=== PATIENT | male | born 1990 | race Two or more races ===

== ENCOUNTER 2024-09-18 03:35 | Inpatient (IN) | payer MEDICAID ==
[~2024-09-18] VITALS: Ht 170.2 cm; Wt 68.0 kg
[2024-09-18 04:24] LABS: BASOPHILS # (AUTO) 0.1 K/UL (0.0-0.2); BASOPHILS % (AUTO) 0.4 % (0.0-2.0); EOSINOPHILS % (AUTO) 0.2 % (0.0-7.0); HEMATOCRIT 45.1 % (36.7-47.1); HEMOGLOBIN 15.4 g/dL (12.5-16.3); LYMPHOCYTES # (AUTO) 1.3 K/uL (0.8-4.8); LYMPHOCYTES % (AUTO) 9.1 % (20.5-51.5); MEAN CORPUSCULAR HEMOGLOBIN 30.7 uug (23.8-33.4); MEAN CORPUSCULAR HGB CONC 34 g/dL (32.5-36.3); MEAN CORPUSCULAR VOLUME 89.9 fL (73.0-96.2); MONOCYTES # (AUTO) 0.6 K/uL (0.1-1.30); MONOCYTES % (AUTO) 4.2 % (0.0-11.0); NEUTROPHILS # (AUTO) 11.8 K/uL (1.8-8.9); NEUTROPHILS % (AUTO) 86.1 % (38.5-71.5); PLATELET COUNT (AUTO) 339 K/uL (152-348); RED BLOOD CELL COUNT(AUTO) 5.02 MIL/uL (4.06-5.63); RED CELL DISTRIBUTION WIDTH 13.7 % (12.1-16.2); WHITE BLOOD COUNT (AUTO) 13.7 K/uL (3.6-10.2)
[2024-09-18 04:24] LABS: *BILIRUBIN,URIN NEGATIVE (NEGATIVE); *CLARITY,URINE CLEAR (CLEAR); *COLOR,URINE YELLOW (YELLOW); *KETONES,URINE NEGATIVE (NEGATIVE); *PROTEIN,URINE 1+ (NEGATIVE); *UROBILINOGEN,URINE 0.2 E.U./dl (NORMAL); LEUKOCYTE ESTERASE ,URINE NEGATIVE (NEGATIVE); NITRITE, URINE NEGATIVE (NEGATIVE); UGLUCOSE NEGATIVE (NEGATIVE)
[2024-09-18 04:27] LABS: DIFFERENTIAL COMMENT 1
[2024-09-18 04:28] LABS: *BLOOD, URINE TRACE (NEGATIVE)
[2024-09-18 04:35] LABS: ETHANOL < 3 MG/DL (0-10)
[2024-09-18 04:35] LABS: *AMPHETAMINE, URINE NEGATIVE (NEGATIVE); *BARBITURATE, URINE NEGATIVE (NEGATIVE); *BENZODIAZEPINE, URINE NEGATIVE (NEGATIVE); *CANNABINOID, URINE NEGATIVE (NEGATIVE); *COCCAINE, URINE NEGATIVE (NEGATIVE); *OPIATE, URINE NEGATIVE (NEGATIVE); *PHENCYCLIDINE SCREEN,URINE NEGATIVE (NEGATIVE); FENTANYL, URINE NEGATIVE (NEGATIVE)
[2024-09-18 04:36] LABS: CALCIUM 9.2 mg/dL (8.5-10.1); CREATININE 0.9 mg/dL (0.6-1.3); POTASSIUM 3.6 mmol/L (3.5-5.1)
[2024-09-18 04:42] LABS: ALBUMIN 4.4 g/dL (3.4-5.0); BILIRUBIN,TOTAL 0.5 mg/dL (0.2-1.0); TOTAL PROTEIN, SERUM 8.7 g/dL (6.4-8.2)
[2024-09-18] MEDS ORDERED: ONDANSETRON 4 MG/2 ML VIAL ONE ×2 (04:47→07:18)
[2024-09-18] MEDS ORDERED: KETOROLAC TROMETHAMINE 30 MG INJ ONE (04:48)
[2024-09-18] MEDS: KETOROLAC TROMETHAMINE 30 MG INJ IVP ONE (04:51)
[2024-09-18] MEDS: ONDANSETRON 4 MG/2 ML VIAL IV ONE ×2 (04:51→07:20)
[2024-09-18] MEDS: IV NS 1000 ML 1,000 ML IV ONE (04:51)
[2024-09-18] MEDS ORDERED: IOHEXOL 300MG/ML 100 ML INFUS..BTL ONE (05:03)
[2024-09-18] MEDS ORDERED: IV NORMAL SALINE 250 ML IV ONE (05:03)
[2024-09-18] MEDS ORDERED: SWABABLE VALVE TRANSFER SET EA MC ONE (05:03)
[2024-09-18 05:09] LABS: BACTERIA,URINE FEW /HPF (NONE SEEN); SQUAMOUS EPITHELIAL CELL,UR FEW /HPF (NONE SEEN); WBC,URINE NONE SEEN /HPF (0-3)
[2024-09-18] MEDS ORDERED: CEFTRIAXONE /D5W 50ML IVPB **ER PYXIS IV ONE (07:18)
[2024-09-18] MEDS ORDERED: MORPHINE SULFATE 2 MG/1 ML DISP.SYRIN ONE (07:18)
[2024-09-18] MEDS: CEFTRIAXONE 1 G in IV DEXTROSE 5% 50 ML IV ONE (07:20)
[2024-09-18] MEDS: MORPHINE SULFATE 2 MG/1 ML DISP.SYRIN IV ONE (07:36)
[2024-09-18] MEDS ORDERED: MORPHINE SULFATE 4 MG/1 ML DISP.SYRIN IV PRN (09:00)
[2024-09-18] MEDS ORDERED: ONDANSETRON 4 MG/2 ML VIAL IV PRN (09:00)
[2024-09-18 09:31] VITALS: BP 114/63; TEMP 98.4; O2SAT 100
[2024-09-18] MEDS ORDERED: MORPHINE SULFATE 2 MG/1 ML DISP.SYRIN IV PRN (09:45)
[2024-09-18] MEDS: METRONIDAZOLE 500 MG/NS 100ML 500 MG in PREMIXED 1 EACH IV SCH (10:00)
[2024-09-18] MEDS ORDERED: MIDAZOLAM HCL 2 MG/2 ML VIAL ONE (10:03)
[2024-09-18] MEDS ORDERED: FENTANYL CITRATE 100 MCG/2 ML AMPUL ONE (10:03)
[2024-09-18] MEDS ORDERED: FAMOTIDINE. 20 MG/2 ML VIAL IV ONE (10:04)
[2024-09-18] MEDS ORDERED: ROCURONIUM BROMIDE 50 MG/5 ML VIAL ONE (10:04)
[2024-09-18] MEDS ORDERED: BUPIVACAINE PF 0.5% 30 ML VIAL ONE (10:25)
[2024-09-18] MEDS ORDERED: ALBUTEROL SULFATE 2.5 MG/3 ML NEBU ONE (12:42)
[2024-09-18] MEDS ORDERED: ALBUTEROL SULFATE 1.25 MG/3 ML NEBU NEB PRN (12:45)
[2024-09-18] MEDS ORDERED: NALOXONE HCL 0.4 MG/ML AMPUL IV ONE ×2 (12:45)
[2024-09-18] MEDS: ALBUTEROL SULFATE 2.5 MG/3 ML NEBU NEB PRN (13:03)
[2024-09-18 13:16] VITALS: BP 116/56; TEMP 98.2; O2SAT 98
[2024-09-18] MEDS: IV LACTATED RINGERS SOLUTION 1,000 ML IV PRN (13:43)
[2024-09-18] MEDS ORDERED: AMOX-430 PO ×2 (16:48→17:13)
[2024-09-18 17:40] VITALS: BP 102/54; TEMP 98.2; O2SAT 99
[2024-09-19] MEDS ORDERED: CEFTRIAXONE 1 G in IV DEXTROSE 5% 50 ML IV SCH (06:00)
== END 2024-09-18 19:25 | disposition home or self-care (01) | DRG 234 ==
LOC: ER 03:35 → MEDSURG3 08:31
PROC: 0DTJ4ZZ Resection of Appendix, Percutaneous Endoscopic Approach (ICD-10-PCS; principal; 2024-09-18 10:30)
DX: K35.891 Other acute appendicitis without perforation, with gangrene (principal); K38.1 Appendicular concretions
CPT/HCPCS: 36415; 83690; 85025; 87040; A4606; A4663; G0378; G0480; J0696; J1308; J1885; J2250; J2270; J2405; J3010; J3490; J7040; J7120; Q9967